=== PATIENT | male | born 1980 | race Caucasian/White ===

== ENCOUNTER 2016-06-14 22:43 | Emergency (ER) | payer OTHER ==
[~2016-06-14] VITALS: Ht 175.3 cm; Wt 106.6 kg
[~2016-06-14 22:43] MED LIST: FLUT9.9S NSEACH; LORA10TA7 PO; POTA-51 PO
[2016-06-14] MEDS ORDERED: FAMOTIDINE 20MG/2ML IV (PEPCID) IV STA (23:05)
[2016-06-14 23:11] LABS: BASOPHILS % (AUTO) 0 % (0-10); EOSINOPHILS # (AUTO) 0.1 10^3/uL (0.0-0.3); EOSINOPHILS % (AUTO) 2 % (0-10); LYMPHOCYTES # (AUTO) 2.7 X 10^3 (1.0-4.0); LYMPHOCYTES % (AUTO) 34 % (12-44); MEAN CORPUSCULAR HEMOGLOBIN 29 PG (25-34); MEAN CORPUSCULAR HGB CONC 34 G/DL (32-36); MEAN CORPUSCULAR VOLUME 86 FL (80-99); MEAN PLATELET VOLUME 9.6 FL (7.4-10.4); MONOCYTES # (AUTO) 0.7 X 10^3 (0.0-1.0); MONOCYTES % (AUTO) 8 % (0-12); NEUTROPHILS # (AUTO) 4.4 X 10^3 (1.8-7.8); NEUTROPHILS % (AUTO) 56 % (42-75); PLATELET COUNT 288 10^3/uL (130-400); RED BLOOD COUNT 5.03 10^6/uL (4.35-5.85); WHITE BLOOD COUNT 7.9 10^3/uL (4.3-11.0)
[2016-06-14] MEDS ORDERED: LIDOCAINE 2% VISCOUS 15 ML UDC PO ONE (23:15)
[2016-06-14] MEDS ORDERED: ANTACID SUSP 30 ML UDC (MYLANTA) PO ONE (23:15)
[2016-06-14 23:27] LABS: ALANINE AMINOTRANSFERASE 46 U/L (0-55); ALBUMIN 4.7 G/DL (3.2-4.5); ANION GAP 13 MMOL/L (5-14); ASPARTATE AMINO TRANSFERASE 25 U/L (5-34); BILIRUBIN,TOTAL 0.7 MG/DL (0.1-1.0); BLOOD UREA NITROGEN 17 MG/DL (7-18); BUN/CREATININE RATIO 16; CALCIUM 9.3 MG/DL (8.5-10.1); CARBON DIOXIDE 18 MMOL/L (21-32); CHLORIDE 109 MMOL/L (98-107); CREATININE SERUM 1.08 MG/DL (0.60-1.30); GFR ESTIMATED > 60; GLUCOSE 105 MG/DL (70-105); POTASSIUM 3.8 MMOL/L (3.6-5.0); SODIUM 140 MMOL/L (135-145); TOTAL PROTEIN 7.5 G/DL (6.4-8.2)
[2016-06-14 23:32] LABS: TROPONIN I < 0.30 NG/ML (<0.30)
--- NOTE | 2016-06-15 00:07 | ED Cardiac General ---
History of Present Illness General Chief Complaint: Chest Pain Stated Complaint: CHEST PAIN Nursing Triage Note: PT TO ED 9 W/ S.O. FOR C/O LT SIDED CHEST "DULLNESS" ONSET THIS AM AFTER DRINKING 6 "GARDENIA BOMBS" LAST NOC. PT REPORTS HE FELT LIKE HIS "HEART WAS POUNDING OUT OF HIS CHEST" THIS AM. DOES REPORT TAKING ASA PO. NO OTHER C/O VOICED Source: patient Exam Limitations: no limitations History of Present Illness Time seen by provider: 23:50 Initial Comments Here with report of left-sided chest dullness that started this morning after drinking alcoholic drinks that were made with energy drinks. He did take his blood pressure medicine early this morning and again this evening. He felt palpitations fairly significantly this morning that improved after taking aspirin and again this evening which also improved after taking aspirin. Denies nausea or vomiting. Does report that he's had some shortness of air but that's been going on for about 6 months. He exercises by lifting weights daily. No recent injuries, surgeries or long rides. Does not usually drink this energy drinks or drink alcohol in excess. Takes metoprolol for blood pressure. Timing/Duration: 12 hours Severity: moderate Location: central Activities at Onset: none Prior CP/Workup: no prior chest pain NTG SL DYNAMITE RECLAIMER: No ASA po DYNAMITE RECLAIMER: Yes Associated Systoms: Chest PainNo Cough, No Fever/Chills, No Nausea/Vomiting, Shortness of AirNo Weakness Allergies and Home Medications Allergies Coded Allergies: No Known Drug Allergies (Unverified , 07/28/15) Home Medications Fluticasone Propionate 9.9 Ml Webster.susp #1 2 SPRAY NSEACH BID Prescribed by: MEGHA PARKS on 07/28/15 171 Loratadine 10 Mg Tablet #30 10 MG PO DAILY Prescribed by: MEGHA PARKS on 07/28/15 171 Potassium Chloride 20 Meq Tablet.er #10 40 MEQ PO Q12H Prescribed by: MEGHA PARKS on 07/28/15 171 Review of Systems Constitutional: see HPI EENTM: No Symptoms Reported Respiratory: See HPI SOA With ExertionDenies SOA at Rest Cardiovascular: See HPI Chest Pain Palpitations Gastrointestinal: No Symptoms Reported Genitourinary: No Symptoms Reported Musculoskeletal: no symptoms reported Skin: no symptoms reported All Other Systems Reviewed Negative Unless Noted: Yes Past Xycchtl-Zvjcrx-Xfxomo Hx Patient Social History Alcohol Use: Occasionally Uses Recreational Drug Use: No Smoking Status: Never a Smoker Recent Foreign Travel: No Contact w/Someone Who Travel: No Recent Infectious Disease Expo: No Recent Hopitalizations: No Physical Abuse Screen: No Sexual Abuse: No Seasonal Allergies Seasonal Allergies: No Surgeries HX Surgeries: Yes Surgeries: Appendectomy, Gallbladder Respiratory Hx Respiratory Disorders: No Cardiovascular Hx Cardiac Disorders: Yes Cardiac Disorders: High Cholesterol, Hypertension Neurological Hx Neurological Disorders: No Reproductive System Hx Reproductive Disorders: No Genitourinary Hx Genitourinary Disorders: No Gastrointestinal Hx Gastrointestinal Disorders: No Musculoskeletal Hx Musculoskeletal Disorders: No Endocrine Hx Endocrine Disorders: No HEENT HX ENT Disorders: No Cancer Hx Cancer: No Psychosocial Hx Psychiatric Problems: No Integumentary HX Skin/Integumentary Disorder: No Blood Transfusions Hx Blood Disorders: No Reviewed Nursing Assessment Reviewed/Agree w Nursing PMH: Yes Family Medical History Significant Family History: Heart Disease Physical Exam Vital Signs Vital Sign - Last 12Hours Capillary Refill : Less Than 3 Seconds General Appearance: No Apparent Distress WD/WN Neck: Full Range of Motion Non Tender Supple Respiratory: Lungs Clear Normal Breath Sounds Cardiovascular: Regular Rate, Rhythm No Murmur Gastrointestinal: Non Tender Soft Extremity: Normal Inspection No Calf Tenderness Neurologic/Psychiatric: Alert Oriented x3 No Motor/Sensory Deficits Skin: Normal Color Warm/Dry Progress/Results/Core Measures Results/Orders Lab Results Laboratory Tests Test 06/14/16 22:58 Range/Units Alanine Aminotransferase (ALT/SGPT) 46 0-55 U/L Albumin 4.7 H 3.2-4.5 G/DL Alkaline Phosphatase 63 40-136 U/L Anion Gap 13 5-14 MMOL/L Aspartate Amino Transf (AST/SGOT) 25 5-34 U/L BUN/Creatinine Ratio 16 Basophils # (Auto) 0.0 0.0-0.1 10^3/uL Basophils (%) (Auto) 0 0-10 % Blood Urea Nitrogen 17 7-18 MG/DL Calcium Level 9.3 8.5-10.1 MG/DL Carbon Dioxide Level 18 L 21-32 MMOL/L Chloride Level 109 H 98-107 MMOL/L Creatinine 1.08 0.60-1.30 MG/DL D-Dimer 0.28 0.00-0.49 UG/ML Eosinophils # (Auto) 0.1 0.0-0.3 10^3/uL Eosinophils (%) (Auto) 2 0-10 % Estimat Glomerular Filtration Rate > 60 Glucose Level 105 70-105 MG/DL Hematocrit 43 40-54 % Hemoglobin 14.7 13.3-17.7 G/DL Lymphocytes # (Auto) 2.7 1.0-4.0 X 10^3 Lymphocytes (%) (Auto) 34 12-44 % Mean Corpuscular Hemoglobin 29 25-34 PG Mean Corpuscular Hemoglobin Concent 34 32-36 G/DL Mean Corpuscular Volume 86 80-99 FL Mean Platelet Volume 9.6 7.4-10.4 FL Monocytes # (Auto) 0.7 0.0-1.0 X 10^3 Monocytes (%) (Auto) 8 0-12 % Neutrophils # (Auto) 4.4 1.8-7.8 X 10^3 Neutrophils (%) (Auto) 56 42-75 % Platelet Count 288 130-400 10^3/uL Potassium Level 3.8 3.6-5.0 MMOL/L Red Blood Count 5.03 4.35-5.85 10^6/uL Red Cell Distribution Width 13.0 10.0-14.5 % Sodium Level 140 135-145 MMOL/L Total Bilirubin 0.7 0.1-1.0 MG/DL Total Protein 7.5 6.4-8.2 G/DL Troponin I < 0.30 <0.30 NG/ML White Blood Count 7.9 4.3-11.0 10^3/uL My Orders Orders-TAPAN TORRES MD Chest Pa/Lat (2 View) (06/14/16 23:05) Saline Lock/Iv-Start (06/14/16 23:05) Ekg Tracing (06/14/16 23:05) Cbc With Automated Diff (06/14/16 23:05) Comprehensive Metabolic Panel (06/14/16 23:05) Troponin I (06/14/16 23:05) Lidocaine 2% Viscous 15 Ml (Xylocaine Vi (06/14/16 23:15) Antacid Suspension (Mylanta Suspension (06/14/16 23:15) Famotidine Injection (Pepcid Injection) (06/14/16 23:05) Fibrin Degradation Products (06/15/16 00:01) Medications Given in ED Current Medications Medications Dose Ordered Sig/Lazaro Route Start Time Stop Time Status Last Admin Dose Admin Al Hydrox/Mg Hydrox/Simethicone 30 ml ONCE ONCE PO 06/14/16 23:15 06/14/16 23:16 DC 06/14/16 23:14 30 ML Lidocaine HCl 15 ml ONCE ONCE PO 06/14/16 23:15 06/14/16 23:16 DC 06/14/16 23:14 15 ML Vital Signs/I&O Vital Sign - Last 12Hours 06/14/16 06/14/16 22:51 22:51 Temp 98.7 Pulse 67 Resp 20 B/P 141/99 Pulse Ox 97 O2 Delivery Room Air Room Air Blood Pressure Mean: 113 Progress Note : Progress Note Seen and evaluated. EKG and labs ordered. GI cocktail by mouth and Pepcid IV ordered. Monitor patient. Blood pressure is improved. Due to history of shortness of air, d-dimer was added. Otherwise labs are negative. Monitor patient. 0025: D-dimer negative. Discharged home with return precautions. Patient verbalize understanding instructions and agreement with plan. ECG Initial ECG Impression Date: Jun 15, 2016 Initial ECG Impression Time: 23:05 Initial ECG Rate: 56 Initial ECG Rhythm: Normal Sinus Initial ECG Comparisson: Unchanged Comment Sinus rhythm with normal axis. No evidence of ST elevation GA. Overall similar to previous of 07/28/15. Interpreted by me. Diagnostic Imaging Diagonstic Imaging: Xray Plain Films/CT/US/NM/MRI: chest Comments no acute findings. Reviewed: Reviewed by Me Departure Impression Impression: Primary Impression: Atypical chest pain Additional Impression: Palpitations Disposition: 01 HOME, SELF-CARE Condition: Improved Departure-Patient Inst. Decision time for Depature: 00:31 Referrals: GEMINI HARRIS APRN (PCP) Primary Care Physician NO,LOCAL PHYSICIAN (Family) Primary Care Physician YAMILE BRADY MD FACP FAC CCDS Franchesca COFFEY MD, BASHAR J MD Patient Instructions: Palpitations (DC), Chest Pain (DC) Add. Discharge Instructions: All discharge instructions reviewed with patient and/or family. Voiced understanding. Avoid caffeinated beverages. Follow-up with your Dr. in 2-3 days for recheck. Return for worse pain, fever, vomiting, weakness, breathing problems or other concerns as needed. You may follow up with cardiology as well as needed for further evaluation of your palpitations and of your blood pressure. TAPAN TORRES MD Jun 15, 2016 00:07
[2016-06-15 00:36] VITALS: BP 133/89
--- NOTE | 2016-06-15 07:42 | Diagnostic Imaging Report ---
CHEST PA/LAT (2 VIEW) Indication: Chest pain Comparison: 07/28/2015 Findings: No focal pneumonic consolidation, pleural effusion or pneumothorax. Normal heart size and pulmonary vasculature. Impression: No acute cardiopulmonary process. Dictated by: Dictated on workstation # [id number]
== END 2016-06-15 00:36 | disposition home or self-care (01) ==
LOC: EDUNIT# 22:43 → ER 22:47
DX: R00.2 Palpitations (principal); R07.89 Other chest pain; I10 Essential (primary) hypertension; Z79.899 Other long term (current) drug therapy
CPT/HCPCS: 36415; 71020; 80053; 84484; 85025; 85379; 93005; 96374

== ENCOUNTER 2016-07-01 12:21 | Outpatient (RCR) | payer OTHER | END 2016-09-29 | disposition home or self-care (01) | LOC: CARD 12:21 | PROVIDERS: ATTEND Internal Medicine Cardiovascular Disease | DX: R07.9 Chest pain, unspecified (principal); R00.2 Palpitations | CPT/HCPCS: 93225; 93226 ==